=== PATIENT | female | born 1995 | race Caucasian/White ===

== ENCOUNTER 2017-07-13 12:46 | Emergency (ER) | payer MEDICAID ==
[~2017-07-13] VITALS: Ht 172.7 cm; Wt 63.5 kg
[~2017-07-13 12:46] MED LIST: AMOXIL400 MG/5 M PO; BACTRIM 400 MG-1 TAB PO; BACTRIM DS 8001 TA1 PO; BROMFED DM COU118 ML PO; CIPRO 500MG TA500 MG PO; FLAGYL 500MG.500 MG PO; FLONASE 50 MCG16 GM; KEFLEX 250MG.250 MG PO; KEFLEX 500MG.500 MG PO; KEFLEX500 M1 PO; MEDROL 4MG. DOSE4 MG PO; NOMEDS; PREDNISONE 10MG10 MG PO; TRAMADOL 50MG T50 MG PO; ZITHROMAX Z PA250 MG PO; Zofran4 MG PO
--- NOTE | 2017-07-13 13:42 | Urgent Treatment Center Report ---
History of Present Issue Date/Time Seen by Provider 07/13/17 1341 Visit Reason Pt arrived:Walked Presenting Problem:C/O SORE THROAT, MEEK, BODYACHES X3 DAYS Location if Accident: Onset of symptoms date/time:/ or onset unknown for:MEDICAL HX UNKNOWN Have you (or family members/close friends) recently traveled outside the [place]? N If Yes, where/when: Have you had exposure to infectious disease within the past month? TB? Other? Specify: Patient state that she has had sorethroat bodyaches and over all not feeling well for 3 days State that it has continued to get worse State that her children have been sick also State that she had to bring her in today and was going to get checked also State that her throat feel sore and feels like there is drainage in the back of her throat ALLERGIES Coded Allergies: Sulfa (Sulfonamide Antibiotics) (03/12/16) Home Medications Active Scripts Azithromycin (Zithromycin (Z-JAY) 250MG Tab) 250 MG PO DAILY #6 TAB Prov: 05/27/17 D-METHORPHAN HB/P-EPD HCL/BPM (Bromfed Dm Cough Syrup) 10 ML PO Q4 #150 SYR Prov: 05/27/17 Methylprednisolone (Medrol Dose Jay) 4 MG PO UD #1 JAY Prov: 05/27/17 Fluticasone Propionate (Flonase 50 Mcg Nasal [place]) 2 SPRAY NA DAILY #1 BOT Prov: 05/27/17 History Medical History General CAD? No Angina: No ID: No Hypertension? No Hyperlipidemia? No CHF? No DVT? No PE? No COPD? No Asthma? Yes Anemia? No GERD? No Gastric ulcers? No GI Bleed? No Hernia? No Thyroid Problems? No Hypothyroidism? No CVA? No Seizures? No Diabetes? No Insulin Dependent: No Insulin Pump: No Home FSBS? No Renal Insuffiency? No UTI? No Stones? Yes BPH? No GB Disease: No Nephritic Syndrome? No Asplenia? No Hepatitis? No Sickle Cell Disease? No Arthritis? No Migraines? No Cataracts? No Glaucoma? No MRSA? No HIV? No TB? No Anxiety? No Depression? No Cancer? No More? No Immunization HX DT/Tetanus 1-4 YRS Surgical Hx Previous Surgery?Y Tonsils RENAL SURGERY FOR STONES Family History Family HX Hypertension Yes Hyperlipidemia Yes Cancer Yes Social History Smoking Hx Smoker: Never Smoker Tobacco: No Packs/day < 1 Pack Alcohol Alcohol: No Review of Systems All Other Systems Reviewed and Negative ENT nose congestion, throat pain. Physical Exam Vital Signs Vital Signs Date Time Temp Pulse Resp B/P Pulse O2 O2 Flow FiO2 Ox Delivery Rate 07/13 1333 98.1 77 16 112/74 98 General Appearance normal appearance, WD/WN, no apparent distress Ear, Nose, Throat throat slightly red, no exudate mild drainage, clear drainage in nose Respiratory Status Yes: trachea midline, chest symmetrical, non tender chest, tender on palpation. No: respiratory distress. 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 No Results/Orders Laboratory Tests 07/13/17 1300: Group A Strep Screen NOT DETECTED Orders Procedure Date/time Status [facility] STREP SCREEN 07/13 1315 Complete Departure Departure Time of Disposition 1345 Disposition DC Home or Self Care(routine) Clinical Impression Primary Impression: Viral upper respiratory illness Condition STABLE Referrals Patrice ARAUJO,Tha Alvarez (Family): 3 Days-Call Office Patient Instructions DI for Viral Upper Respiratory Infection -- Adult Additional Instructions * Monitor Temp. Tylenol and/or Ibuprofen as needed. ER if fever is no less than 101 despite alternating Tylenol and Ibuprofen * Encourage fluids, water, Gatorade, powerade, pedialyte if infant/toddler/or child * Warm salt water gargles for throat irritation *Warm fluids *Sore throat lozenges *Sleep elevated *humidifier or vaporizer Follow up IMMEDIATELY for new or worsening of symptoms OR no noticeable improvement over the next 48-72 hours. 911 immediately for any life threatening symptoms such as chest pain or difficulty breathing Discharge Counseling Counseled pt/family regarding diagnosis, test results, home care, follow up needs at 1347
[2017-07-13 13:52] VITALS: BP 112/74
== END 2017-07-13 13:53 | disposition home or self-care (01) ==
LOC: UTC 12:46
DX: J06.9 Acute upper respiratory infection, unspecified (principal)

== ENCOUNTER 2017-07-28 12:50 | Emergency (ER) | payer MEDICAID ==
[~2017-07-28] VITALS: Ht 172.7 cm; Wt 64.9 kg
--- NOTE | 2017-07-28 13:15 | Emergency Room Report ---
History of Present Illness Time Seen by 130Audrey Presenting Problem in Triage Pt arrived:Walked Presenting Problem:TRIPPED, FELL LAST NIGHT RIGHT WRIST PAIN Onset of symptoms date/time:/ or onset unknown for:MEDICAL HX UNKNOWN Treatment Prior to Arrival: CORRECTIONAL MANAGER Provided by: Sepsis Risk Assessment: Temp: 97.4 B/P: 125/81 MAP: 95 Pulse: 90 Resp: 16 Recent fever? N Clinical Suspician of Infection? Y Mental Status: 1 - Regular (Normal Baseline) Sepsis Risk:Low Sepsis Risk Have you (or family members/close friends) recently traveled outside the [place]? N If Yes, where/when: Have you had exposure to infectious disease within the past month? N TB? Other? Specify: 22 years old white female who was walking out of the door. Yesterday, she tripped and fell on the RIGHT wrist with pain radiating to the RIGHT forearm. She is an [employer] wrap and applied ice. She is her for x-rays. Neurovascular intact Source patient, RN notes reviewed, family Exam Limitations no limitations ALLERGIES Coded Allergies: Sulfa (Sulfonamide Antibiotics) (03/12/16) Home Medications Active Scripts Azithromycin (Zithromycin (Z-JAY) 250MG Tab) 250 MG PO DAILY #6 TAB Prov: 05/27/17 D-METHORPHAN HB/P-EPD HCL/BPM (Bromfed Dm Cough Syrup) 10 ML PO Q4 #150 SYR Prov: 05/27/17 Methylprednisolone (Medrol Dose Jay) 4 MG PO UD #1 JAY Prov: 05/27/17 Fluticasone Propionate (Flonase 50 Mcg Nasal [place]) 2 SPRAY NA DAILY #1 BOT Prov: 05/27/17 History Medical History General CAD? No Angina: No [place]: No Hypertension? No Hyperlipidemia? No CHF? No DVT? No PE? No COPD? No Asthma? Yes Anemia? No GERD? No Gastric ulcers? No GI Bleed? No Hernia? No Thyroid Problems? No Hypothyroidism? No CVA? No Seizures? No Diabetes? No Insulin Dependent: No Insulin Pump: No Home FSBS? No Renal Insuffiency? No End Stage Renal Disease? No UTI? No Stones? Yes BPH? No GB Disease: No Nephritic Syndrome? No Asplenia? No Hepatitis? No Sickle Cell Disease? No Arthritis? No Migraines? No Cataracts? No Glaucoma? No MRSA? No HIV? No TB? No Anxiety? No Depression? No Cancer? No More? No Immunization Hx DT/Tetanus 1-4 YRS Surgical Hx Previous Surgery?Y Tonsils RENAL SURGERY FOR STONES [employer] Hx LMP 1 Week Ago Family History Family Hx Hypertension Yes Hyperlipidemia Yes Cancer Yes Social History Smoking Hx Smoker: Current Every Day Smoker Tobacco: Yes Type Cigarettes Packs/day < 1 Pack Alcohol Alcohol: No Review of Systems All Other Systems Reviewed and Negative Constitutional no symptoms reported Eyes no symptoms reported ENT no symptoms reported. Respiratory no symptoms reported Cardiovascular no symptoms reported Gastrointestinal no symptoms reported Genitourinary no symptoms reported. Musculoskeletal joint pain (r wrist) Skin no symptoms reported Psychiatric/Neurological no symptoms reported Physical Exam Vital Signs Vital Signs Date Time Temp Pulse Resp B/P Pulse O2 O2 Flow FiO2 Ox Delivery Rate 07/28 1257 97.4 90 16 125/81 97 - WBC >12,000 or <4,000 or 10% bands? 2 or more SIRS Criteria Met? B/P:125/81 MAP:95 Creatinine >2.0? UA output<0.5ml/kg/hr for 2 hrs? Platelet count >100,000? Lactate >2.0mmol/1? INR >1.2 or PTT > than 60 sec? Evidence of Organ Dysfunction? Provider documented clinical suspician of infection? Y Sepsis Criteria Count: 1 Sepsis Risk: Low Sepsis Risk General Appearance normal appearance, WD/WN Eye Exam - bilateral eye normal exam, bilateral eye PERRL, bilateral eye EOMI Ear, Nose, Throat hearing grossly normal, normal ENT inspection Neck normal inspection, non-tender, supple, full range of motion Respiratory Status Yes: trachea midline, chest symmetrical, non tender chest. No: respiratory distress. Lung Sounds bilateral: normal breath sounds, lungs clear. Cardiovascular normal exam, regular rate/rhythm, no peripheral edema, no gallop, no JVD, no murmur, no rub, normal peripheral pulses Peripheral Pulses Pulses normal Yes Gastrointestinal normal bowel sounds, normal exam, non tender, soft, no organomegaly Back normal inspection, no CVA tenderness, no vertebral tenderness Extremities she has tenderness over right AC joint of her shoulder. She is tender over the ulnar styloid process. 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 No Results/Orders Current Medication Orders Sig/Olinda Start time Last Medication Dose Route Stop Time Status Admin Ibuprofen 600 MG ONCE ONE 07/28 1330 CAN PO 07/28 1331 Ibuprofen 648.64 MG ONCE ONE 07/28 1330 DC 07/28 PO 07/28 1331 1325 Ibuprofen 0 .STK-MED ONE 07/28 1323 DC .ROUTE Orders Procedure Date/time Status [id number] VIEWS 07/28 1348 Active FOREARM-RT 07/28 1316 Active WRIST-3 VIEWS-RT 07/28 1303 Active XRAY/CT/US XRAY/CT/US XRAY forearm, shoulder, wrist XR interpretation by reviewed by me Xray Results normal/NAD Comment No fracture or dislocation Departure Departure Time of Disposition 1315 Disposition DC Home or Self Care(routine) Clinical Impression Primary Impression: Wrist injury Secondary Impressions: Right shoulder strain Condition STABLE Referrals Patrice ARAUJO,Tha Alvarez (Family) Additional Instructions 1- follow up with the Dr Josue in AM on final x ray reports. 2- Velcroe splint. 3- elevate. 4- ice . 5- alternate moltrin and tylenol prn for pain. 6- Nurovascula r chesk hourly while awake. 7- Return if needed. Discharge Counseling Counseled pt/family regarding diagnosis, test results, medications/RX, home care, follow up needs ED Critical Care Critical Care No If Critical Care minutes are documented, the time involved in the performance of seperately reportable procedures was not counted toward critical care time documented. I directly delivered medical care to this critically ill and/or injured patient. Timely evaluation and treatment was necessary to address the significant organ system(s) dysfunction present in this patient. Comments 1- shoulder sling and wrist strain. 2- alternate motrin and tylenol. 3- follow up with Dr Parker in am on the fianl x ray report. 4- NV check hourly while awake. 5- return if neeeded. at 1400
--- NOTE | 2017-07-28 14:07 | RADIOLOGY REPORT PS360 ---
WRIST-3 VIEWS-RT HISTORY: PAIN ORDERING PHYSICIAN: Odalys Ruelas MD PATIENT AGE: 22 years COMPARISON: None FINDINGS: No fracture or dislocation. No lytic or blastic change. There is normal mineralization.. The joint spaces are well-preserved. No significant degenerative/arthritic changes. No erosive changes evident.. IMPRESSION: Negative wrist
--- NOTE | 2017-07-28 14:07 | RADIOLOGY REPORT PS360 ---
FOREARM-RT HISTORY: Pain following injury [facility] ORDERING PHYSICIAN: Odalys Ruelas MD PATIENT AGE: 22 years COMPARISON: None FINDINGS: No obvious fracture, dislocation, lytic change or blastic change. Normal mineralization. Unremarkable soft tissues IMPRESSION: Negative forearm
--- NOTE | 2017-07-28 14:07 | RADIOLOGY REPORT PS360 ---
FOREARM-RT HISTORY: Pain following injury [facility] ORDERING PHYSICIAN: Odalys Ruelas MD PATIENT AGE: 22 years COMPARISON: None FINDINGS: No obvious fracture, dislocation, lytic change or blastic change. Normal mineralization. Unremarkable soft tissues IMPRESSION: Negative forearm
[2017-07-28 14:29] VITALS: BP 125/81
--- NOTE | 2017-07-28 21:25 | RADIOLOGY REPORT PS360 ---
[id number] VIEWS HISTORY: Pain following injury fall ORDERING PHYSICIAN: Odalys Ruelas MD PATIENT AGE: 22 years COMPARISON: None FINDINGS: No fracture or dislocation. No lytic or blastic change. There is normal mineralization. The joint spaces are well-preserved. No significant degenerative/arthritic changes. No erosive changes evident. IMPRESSION: Negative, no acute finding
== END 2017-07-28 14:29 | disposition home or self-care (01) ==
LOC: ER 12:50
PROC: 2W3CX1Z Immobilization of Right Lower Arm using Splint (ICD-10-PCS; principal; 2017-07-28)
DX: S43.401A Unspecified sprain of right shoulder joint, initial encounter (principal); W01.0XXA Fall on same level from slipping, tripping and stumbling without subsequent striking against object, initial encounter; Y92.009 Unspecified place in unspecified non-institutional (private) residence as the place of occurrence of the external cause; S69.91XA Unspecified injury of right wrist, hand and finger(s), initial encounter; Z88.2 Allergy status to sulfonamides; J45.909 Unspecified asthma, uncomplicated; F17.210 Nicotine dependence, cigarettes, uncomplicated